=== PATIENT | male | born 1975 | race Caucasian/White ===

== ENCOUNTER 2022-02-03 00:29 | Emergency (ER) | payer OTHER ==
[2022-02-03 01:12] VITALS: BP 141/76
[2022-02-03] MEDS ORDERED: ACETAMINOPHEN 325 MG TAB ONE (01:12)
[2022-02-03] MEDS ORDERED: ACETAMINOPHEN 325 MG TAB PO ONE (03:45)
== END 2022-02-03 01:12 | disposition home or self-care (01) ==
LOC: FSED 00:33
DX: S20.212A Contusion of left front wall of thorax, initial encounter (principal); W22.8XXA Striking against or struck by other objects, initial encounter; Y93.01 Activity, walking, marching and hiking; Y92.89 Other specified places as the place of occurrence of the external cause; K76.9 Liver disease, unspecified; F17.210 Nicotine dependence, cigarettes, uncomplicated
CPT/HCPCS: 99282